=== PATIENT | female | born 1990 | race African-American/Black ===

== ENCOUNTER 2016-08-01 20:17 | Emergency (ER) | payer OTHER ==
[~2016-08-01] VITALS: Ht 162.6 cm; Wt 44.9 kg
[2016-08-01] MEDS ORDERED: ADVIL200 M1 PO (20:46)
[2016-08-01] MEDS ORDERED: NORFLEX100 MG PO (21:03)
[2016-08-01 21:26] VITALS: BP 128/74
== END 2016-08-01 21:28 | disposition home or self-care (01) ==
LOC: ER 20:17
DX: M54.6 Pain in thoracic spine (principal); F41.9 Anxiety disorder, unspecified; F48.9 Nonpsychotic mental disorder, unspecified; F10.99 Alcohol use, unspecified with unspecified alcohol-induced disorder

== ENCOUNTER 2016-08-06 20:10 | Emergency (ER) | payer OTHER ==
[~2016-08-06] VITALS: Ht 157.5 cm; Wt 45.4 kg
--- NOTE | ~2016-08-06 | EKG ---
[place] [address] [facility] [place] [address] ELECTROCARDIOGRAM REPORT Name: LUISAMERCEDEZ DIANE Room #: [id number] Admission: 08/06/16 Attend Phys: Discharge: 08/06/16 Date of : 88 Report #: [id number] THIS REPORT FOR: //name// [facility] ED Test Date: 2016-08-06 Test Time: 20:33:22 Pat Name: MERCEDEZ MORAN Department: Room: Gender: F [employer] Ordnanceman: VINICIO : 1990 Requested By: Clark Simmons Order Number: [id number] MD: Alexander Gallardo Measurements Intervals [place] Rate: 94 P: 66 MT: 154 QRS: 56 QRSD: 66 T: 41 QT: 327 QTc: 409 Interpretive Statements Sinus rhythm Baseline wander in lead(s) V1 No previous ECG available for comparison Electronically Signed On 08-09-2016 11:54:45 CDT by Alexander Gallardo [email or web address] <ELECTRONICALLY SIGNED> By: Alexander Gallardo MD, [facility] 08/09/16 1154 2033 32 Alexander Gallardo MD, FACC /EPI
[~2016-08-06 20:10] MED LIST: ADVIL200 M1 PO; NORFLEX100 MG PO
[2016-08-06 21:56] LABS: ABSOLUTE NEUTROPHILS 3.6 thou/uL (1.4-8.2); BASOPHILS 0.7 % (0.0-2.0); EOSINOPHILS 1.9 % (0.0-3.0); HEMATOCRIT 40.6 % (37.0-47.0); HEMOGLOBIN 13.6 gm/dL (12.0-15.0); LYMPHOCYTES 35.3 % (24.0-44.0); MCH 30.9 pg (26.0-34.0); MCHC 33.4 g/dL (28.0-37.0); MCV 92.7 fL (80.0-100.0); MONOCYTES 7.6 % (1.0-8.0); PLATELET COUNT 271 thou/uL (150-400); POLYS 54.5 % (36.0-66.0); RBC 4.38 mil/uL (4.20-5.00); RDW 14.2 % (10.5-14.5); WBC 6.7 thou/uL (4.0-11.0)
[2016-08-06 21:59] LABS: MANUAL DIFF NO
[2016-08-06 22:05] LABS: CALCIUM 9.1 mg/dL (8.5-10.1); CREATININE 0.8 mg/dL (0.6-1.0); POTASSIUM 3.5 mmol/L (3.5-5.1)
[2016-08-06 22:35] LABS: URINE BILIRUBIN NEGATIVE (Negative); URINE BLOOD 3+ (Negative); URINE COLOR YELLOW; URINE GLUCOSE-RANDOM* NEGATIVE (Negative); URINE KETONES 2+ (Negative); URINE NITRITE NEGATIVE (Negative); URINE PROTEIN (DIPSTICK) NEGATIVE (Negative); URINE UROBILINOGEN 0.2 E.U./dl (0.2-1.0)
[2016-08-06 22:46] LABS: BACTERIA >30 Many /HPF (None Seen); CASTS None Seen /LPF (None Seen); SQUAMOUS >10 Many /LPF (0-3); URINE RBC 3-10 Few /HPF (0-2); URINE WBC 0-5 Rare /HPF (0-5)
[2016-08-06 22:47] LABS: CRYSTALS None Seen /LPF (None Seen)
[2016-08-06] MEDS ORDERED: NAPROSYN500 MG PO (22:50)
[2016-08-06 23:45] VITALS: BP 139/86
== END 2016-08-06 23:45 | disposition home or self-care (01) ==
LOC: ER 20:10
PROVIDERS: Nurse Practitioner
DX: M25.50 Pain in unspecified joint (principal); M79.1 Myalgia; F10.99 Alcohol use, unspecified with unspecified alcohol-induced disorder